=== PATIENT | female | born 1945 | race Hispanic/Latino ===

== ENCOUNTER 2019-07-12 07:52 | Day surgery (SDC) | payer MEDICARE ==
[2019-07-12] VITALS (7 sets, daily range): BP systolic 70–138; BP diastolic 39–97
[~2019-07-12] VITALS: Ht 149.9 cm; Wt 46.7 kg
[~2019-07-12 07:52] MED LIST: ASPI-555 PO; CALC-265 PO; CHOL500062 PO; CIPR500S5 PO; DICL2100G TP; DOXY100C40 PO; DULO30CA52 PO; FERS325 PO; FLUT1AER IH; FURO20TA4 PO; HYDR-4060 PO; LEFL20TA18 PO; LEVO88TA7 PO; PANT40TA25 PO; SODIUM CHLORIDE 0.9% 1000ML 1,000 ML IV ONE; SULFAD500 PO; TIOT18CA3 IH; [UNRECOGNIZED DRUG - OTHER] PO
[2019-07-12] MEDS ORDERED: PROPOFOL 10 MG/ML 20ML VIAL IV ONE ×2 (09:24)
[2019-07-12] MEDS ORDERED: PHENYLEPHRINE HCL 10 MG/ML 1ML VIAL IV ONE (09:38)
[2019-07-12] MEDS ORDERED: SODIUM CHLORIDE 0.9% 10 ML VIAL ONE (09:39)
== END 2019-07-12 10:30 | disposition home or self-care (01) ==
LOC: ENDO 07:52 → DAH 07:52 → ENDO 10:30
PROVIDERS: ATTEND Internal Medicine
DX: D50.9 Iron deficiency anemia, unspecified (principal); K57.30 Diverticulosis of large intestine without perforation or abscess without bleeding; K64.0 First degree hemorrhoids; K29.50 Unspecified chronic gastritis without bleeding; J44.9 Chronic obstructive pulmonary disease, unspecified; I25.10 Atherosclerotic heart disease of native coronary artery without angina pectoris; K22.8 Other specified diseases of esophagus; I50.43 Acute on chronic combined systolic (congestive) and diastolic (congestive) heart failure; M19.90 Unspecified osteoarthritis, unspecified site; M81.0 Age-related osteoporosis without current pathological fracture; E03.9 Hypothyroidism, unspecified; Z86.73 Personal history of transient ischemic attack (TIA), and cerebral infarction without residual deficits; Z98.890 Other specified postprocedural states; Z90.49 Acquired absence of other specified parts of digestive tract; Z90.89 Acquired absence of other organs; Z96.659 Presence of unspecified artificial knee joint
CPT/HCPCS: 43239; 45378; 88305; A4215; A4221; A4222; A4223; A4606; A4620; A4663; J2370; J2704 ×2; J7030